=== PATIENT | female | born 1930 | race Caucasian/White ===

== ENCOUNTER → 2017-11-08 | Outpatient (CLI) | payer MEDICARE, BC ==
--- NOTE | 2017-11-08 09:19 | CT ---
EXAMINATION TYPE: CT abdomen pelvis wo con DATE OF EXAM: 11/08/2017 COMPARISON: 07/17/2016 HISTORY: Abdominal pain and constipation CT DLP: 229.80 mGycm Examination of the solid and hollow viscera is limited given the lack of contrast. FINDINGS: LUNG BASES: No evidence for nodule. No evidence for infiltrate. LIVER/GB: The gallbladder surgically absent. No space-occupying hepatic lesion. PANCREAS: No pancreatic mass identified. No inflammatory process seen. SPLEEN: No evidence for splenomegaly. No intrasplenic lesions seen. ADRENALS: No adrenal nodules identified. No evidence for thickening. KIDNEYS: No evidence for renal mass. No nephrolithiasis. No hydronephrosis. BOWEL: Moderate sized hiatal hernia with prominent intraluminal soft tissue. Consider direct visualiz ation to exclude underlying mass. Postsurgical change epicardium. Moderate to severe constipation thr oughout the colon. Postoperative changes rectosigmoid region. Small bowel is of normal caliber. No ev idence for free air or abscess. No evidence of bowel obstruction. No inflammatory process. Lymph nodes: No evidence for adenopathy greater than 1 cm. Abdominal aorta: Atheromatous changes seen. No evidence for aneurysm. Genital organs: Hysterectomy changes identified.. Other: Interval severe compression fracture of the L1 vertebral segment with minimal bony retropulsio n measuring 3 mm. Mild superior endplate compression fracture of L4 is unchanged. Superior endplate c ompression fracture of T11 is felt to be unchanged as well. Severe degenerative change. IMPRESSION: 1. HIATAL HERNIA WITH INCREASED SOFT TISSUE NOTED. CONSIDER DIRECT VISUALIZATION TO EXCLUDE MASS. 2. MODERATE TO SEVERE CONSTIPATION. 3. LUMBAR AND THORACIC COMPRESSION FRACTURES DISCUSSED ABOVE.
== END | disposition home or self-care (01) ==
LOC: RADCTMAIN 07:15
PROVIDERS: ATTEND Family Medicine
DX: K44.9 Diaphragmatic hernia without obstruction or gangrene (principal); K59.00 Constipation, unspecified
CPT/HCPCS: 74176

== ENCOUNTER → 2017-11-27 | Day surgery (SDC) | payer MEDICARE, BC ==
[2017-11-22 15:06] VITALS: BMI 23.8
[~2017-11-27] MED LIST: LACTATED RINGERS 1,000 ML IV ONE; LACTATED RINGERS 1,000 ML IV SCH; LIDOCAINE 1% 20 ML VIAL (10MG/ML) FOR IV START INTRADERMA PRN; PROPOFOL 10 MG/ML 20 ML VIAL IV ONE
[2017-11-27 10:06] VITALS: RESP 18; TEMP 98
--- NOTE | 2017-11-27 10:19 | P.GSHP ---
History of Present Illness H&P Date: 11/27/17 Chief Complaint: GI bleed This is an 86-year-old female who's had issues with rectal bleeding. Patient history of previous colon cancer. She presents today for upper and lower endoscopy for GI bleed. Past Medical History Past Medical History: Cancer, GERD/Reflux Additional Past Medical History / Comment(s): hx colon cancer 2005, had 6 months of chemo, recent blood in stool, states current hiatal hernia, states has had back pain since august, urinary incontinence History of Any Multi-Drug Resistant Organisms: None Reported Past Surgical History: Adenoidectomy, Appendectomy, Bowel Resection, Hysterectomy, Tonsillectomy Additional Past Surgical History / Comment(s): hiatal hernia repair, hang cataract sx Past Anesthesia/Blood Transfusion Reactions: No Reported Reaction Smoking Status: Never smoker - Past Family History Mother Family Medical History: No Reported History Medications and Allergies Home Medications Medication Instructions Recorded Confirmed Type Esomeprazole Magnesium [NexIUM] 40 mg PO DAILY PRN 03/15/16 11/22/17 History Acetaminophen Tab [Tylenol Tab] 325 mg PO Q6H PRN 11/22/17 11/22/17 History HYDROcodone/APAP 7.5-325MG [[place] 1 tab PO Q4H PRN 11/22/17 11/22/17 History 7.5-325] Oxybutynin Chloride [Ditropan] 5 mg PO DAILY PRN 11/22/17 11/22/17 History Allergies Allergy/AdvReac Type Severity Reaction Status Date / Time ibuprofen [From Motrin] Allergy Intermediate Swelling Verified 11/22/17 14:59 Surgical - Exam Vital Signs Temp Pulse Resp BP Pulse Ox 98.0 F 113 H 18 130/86 98 11/27/17 09:50 11/27/17 09:50 11/27/17 09:50 11/27/17 09:50 11/27/17 09:50 - General well developed, no distress - Eyes PERRL - ENT normal pinna - Neck no masses - Respiratory normal expansion - Cardiovascular Rhythm: regular - Abdomen Abdomen: soft, non tender, surgical scars (Low midline) Assessment and Plan Assessment: GI bleed. We'll perform upper and lower endoscopy.
--- NOTE | 2017-11-27 10:44 | P.OP ---
Date of Procedure: 11/27/17 Preoperative Diagnosis: Bleed Postoperative Diagnosis: Hiatal hernia Antral gastritis No evidence of colonic bleeding Mild external hemorrhoids Procedure(s) Performed: Colonoscopy Anesthesia: MAC Surgeon: Clinton Mitchell Pathology: other (Antrum, esophagus) Condition: stable Description of Procedure: The patient's placed on the endoscopy table in the lateral position. She received IV sedation. The gastroscope was placed oropharynx and passed in the esophagus and into the stomach. Scope was then placed through the pylorus. The first and second portion of the duodenum appeared normal. Scope was then brought back the antrum this. Mildly inflamed. A biopsies performed. The scope was unretroflexed and remainder of the stomach appeared normal. The GE junction was at 38 cm the distal esophagus appeared inflamed. There was a hiatal hernia seen. The proximal esophagus appeared normal. Scope was withdrawn for patient. Next digital rectal exam was performed which revealed a few external hemorrhoids. The flexible colonoscope was then placed patient anus and passed throughout the entire colon. The ileocecal valve was visualized. Cecum, ascending and transverse colon appeared normal. The descending colon was normal. The patient had a previous colorectal anastomosis this was visualized and appeared normal. There is known to any recurrent tumors. Scope summer back the rectum and this was normal. Scope then withdrawn from patient and some minimal internal and the external hemorrhoids were noted.
[2017-11-27 11:15] VITALS: BP 104/61; PULSE 77
== END ==
LOC: ORWHC2ENDO 09:34
PROVIDERS: ATTEND Surgery
DX: K29.50 Unspecified chronic gastritis without bleeding (principal); K20.0 Eosinophilic esophagitis; Z85.038 Personal history of other malignant neoplasm of large intestine; Z98.0 Intestinal bypass and anastomosis status; K21.0 Gastro-esophageal reflux disease with esophagitis; K44.9 Diaphragmatic hernia without obstruction or gangrene; K64.4 Residual hemorrhoidal skin tags; K64.8 Other hemorrhoids; Z88.6 Allergy status to analgesic agent
CPT/HCPCS: 88305; 45378; 43239; J2704

== ENCOUNTER → 2018-11-27 | Outpatient (CLI) | payer MEDICARE, BC ==
--- NOTE | 2018-11-27 10:22 | CT ---
EXAMINATION TYPE: CT chest wo con DATE OF EXAM: 11/27/2018 COMPARISON: 02/13/2012 HISTORY: Pain of thoracic spine CT DLP: 242 mGycm, Automated exposure control for dose reduction was used. CONTRAST: Performed injected with 0 mL of Isovue 300. TECHNIQUE: Axial images were obtained at 5 mm thick sections. Reconstructed images are reviewed on doctors hospital computer in the coronal plane. FINDINGS: Portion of the thyroid visualized is normal. No suspicious lung nodules or focal infiltrates are present. No enlarged mediastinal or hilar adenopathy is evident. Vascular calcifications within the aorta. T he ascending aorta diameter at the level of the main pulmonary artery is 3.4 cm. The main pulmonary artery diameter at the bifurcation is 1.9 cm. Mild coronary artery calcification is present. Limited CT sections are obtained through the upper abdomen. There is a small to moderate hiatal herni a present. Upper abdomen appears unremarkable. Osseous structures as visualized appear unremarkable. No discrete abnormality within the left posteri or ribs or within the scapula are evident. Note is made of a compression deformity within the lower thoracic spine this is an interval finding f rom 2011. This has some minimal posterior wall displacement without spinal canal stenosis. IMPRESSIONS: 1. Small to moderate size hiatal hernia. 2. No suspicious abnormality within the left ribs or scapula. 3. Interval compression deformity lower thoracic spine, likely the T11 level.
== END | disposition home or self-care (01) ==
LOC: RADCTMAIN 07:08
PROVIDERS: ATTEND Physical Medicine & Rehabilitation
DX: M43.8X4 Other specified deforming dorsopathies, thoracic region (principal); K44.9 Diaphragmatic hernia without obstruction or gangrene
CPT/HCPCS: 71250

== ENCOUNTER → 2018-12-06 | Outpatient (CLI) | payer MEDICARE, BC ==
[2018-12-06 11:12] LABS: Basophils # (A) 0.1 k/uL (0-0.2); Basophils % (A) 1 %; Eosinophils # (A) 0.2 k/uL (0-0.7); Eosinophils % (A) 4 %; HCT 37.8 % (34.0-46.0); HGB 12.1 gm/dL (11.4-16.0); Lymphocytes # (A) 1.3 k/uL (1.0-4.8); Lymphocytes % (A) 26 %; MCH 30.7 pg (25.0-35.0); MCV 96.2 fL (80.0-100.0); Mean Platelet Volume 5.8; Monocytes # (A) 0.3 k/uL (0-1.0); Monocytes % (A) 5 %; Neutrophils # (A) 3.1 k/uL (1.3-7.7); Neutrophils % (A) 61 %; Platelet Count 297 k/uL (150-450); RBC 3.93 m/uL (3.80-5.40); RDW 13.2 % (11.5-15.5)
[2018-12-06 12:31] LABS: Erythrocyte Sedimentation Rate 28 mm/hr (0-20)
== END | disposition home or self-care (01) ==
LOC: LABWHC1 10:06
PROVIDERS: ATTEND Physical Medicine & Rehabilitation
DX: M54.5 Low back pain (principal); E78.5 Hyperlipidemia, unspecified; M54.6 Pain in thoracic spine; M54.2 Cervicalgia; M25.512 Pain in left shoulder; Z85.820 Personal history of malignant melanoma of skin
CPT/HCPCS: 36415; 85025; 85652; 86140

== ENCOUNTER 2019-05-01 14:33 | Emergency (ER) | payer MEDICARE, BC ==
[2019-05-01] MEDS ORDERED: SODIUM CHLORIDE 0.9% 500 ML 500 ML IV STA (15:04)
--- NOTE | 2019-05-01 15:08 | ED ---
General Adult HPI - General Chief complaint: Shortness of Breath Stated complaint: SOB Time Seen by Provider: 05/01/19 14:40 Source: patient, RN notes reviewed Mode of arrival: wheelchair Limitations: no limitations - History of Present Illness Initial comments: This is an 88-year-old female with a past medical history significant for hiatal hernia. Patient states she takes no other medications. Patient states she was washing dishes and she became a little short of breath so she walked into the other room and laid down. Patient states she could not get over the shortness of breath so she came to the hospital. Patient states this started about an hour and a half prior to arrival. Patient denies any chest pain pressure or discomfort. Patient denies any recent fever though she does states she's been having a cough and some laryngitis. Patient states she's been appointment with ENT to check that out. Patient denies any recent fever chills. Patient states her shortness of breath has improved since she's been in the hospital. Patient denies any headache patient denies numbness weakness. Patient denies any abdominal pain patient denies nausea vomiting diarrhea. Patient denies any leg swelling or calf tenderness. - Related Data Home Medications Medication Instructions Recorded Confirmed Esomeprazole Magnesium [NexIUM] 40 mg PO DAILY PRN 03/15/16 05/01/19 Ascorbic Acid [Vitamin C] 500 mg PO DAILY 05/01/19 05/01/19 Cholecalciferol [Vitamin D3 (25 1,000 unit PO DAILY 05/01/19 05/01/19 Mcg = 1000 Iu)] Vitamin E 1,000 unit PO DAILY 05/01/19 05/01/19 Allergies Allergy/AdvReac Type Severity Reaction Status Date / Time No Known Allergies Allergy Verified 05/01/19 15:12 Review of Systems ROS Statement: Those systems with pertinent positive or pertinent negative responses have been documented in the HPI. ROS Other: All systems not noted in ROS Statement are negative. Past Medical History Past Medical History: Cancer, GERD/Reflux Additional Past Medical History / Comment(s): hx colon cancer 2005, had 6 months of chemo, recent blood in stool, states current hiatal hernia, states has had back pain since august, urinary incontinence History of Any Multi-Drug Resistant Organisms: None Reported Past Surgical History: Adenoidectomy, Appendectomy, Bowel Resection, Hysterectomy, Tonsillectomy Additional Past Surgical History / Comment(s): hiatal hernia repair, hang cataract sx Past Anesthesia/Blood Transfusion Reactions: No Reported Reaction Past Psychological History: No Psychological Hx Reported Smoking Status: Never smoker Past Alcohol Use History: None Reported Past Drug Use History: None Reported - Past Family History Mother Family Medical History: No Reported History General Exam - General Exam Comments Initial Comments: GENERAL: Patient is well-developed and well-nourished. Patient is nontoxic and well- hydrated and is in mild distress. ENT: Neck is soft and supple. No significant lymphadenopathy is noted. Oropharynx is clear. Moist mucous membranes. Neck has full range of motion without eliciting any pain. EYES: The sclera were anicteric and conjunctiva were pink and moist. Extraocular movements were intact and pupils were equal round and reactive to light. Eyelids were unremarkable. PULMONARY: Unlabored respirations. Good breath sounds bilaterally. No audible rales rhonchi or wheezing was noted. CARDIOVASCULAR: There is a regular rate and rhythm without any murmurs gallops or rubs. ABDOMEN: Soft and nontender with normal bowel sounds. No palpable organomegaly was noted. There is no palpable pulsatile mass. SKIN: Skin is clear with no lesions or rashes and otherwise unremarkable. NEUROLOGIC: Patient is alert and oriented x3. Cranial nerves II through XII are grossly intact. Motor and sensory are also intact. Normal speech, volume and content. Symmetrical smile. MUSCULOSKELETAL: Normal extremities with adequate strength and full range of motion. No lower extremity swelling or edema. No calf tenderness. LYMPHATICS: No significant lymphadenopathy is noted PSYCHIATRIC: Normal psychiatric evaluation. Limitations: no limitations Course Vital Signs 05/01/19 05/01/19 14:39 16:45 Temperature 97.9 F Pulse Rate 86 Respiratory 24 18 Rate Blood Pressure 153/89 O2 Sat by Pulse 100 Oximetry Medical Decision Making - Medical Decision Making EKG shows normal sinus rhythm at 77 bpm [place] interval is 140 QRS is 60 QT interval 380 QTC is 4:30. Patient's EKG shows no ST segment elevation or depression. New. Patient ambulated around the emergency department without any problems and she was back to her baseline. Patient denied any shortness of breath at this time. - Lab Data Result diagrams: 05/01/19 15:12 05/01/19 15:12 Lab Results 07/11/19 07/11/19 07/11/19 Range/Units 15:12 15:12 15:12 WBC 4.9 (3.8-10.6) k/uL RBC 3.66 L (3.80-5.40) m/uL Hgb 11.3 L (11.4-16.0) gm/dL Hct 35.3 (34.0-46.0) % MCV 96.4 (80.0-100.0) fL MCH 31.0 (25.0-35.0) pg MCHC 32.2 (31.0-37.0) g/dL RDW 13.6 (11.5-15.5) % Plt Count 263 (150-450) k/uL Neutrophils % 60 % Lymphocytes % 28 % Monocytes % 6 % Eosinophils % 1 % Basophils % 1 % Neutrophils # 2.9 (1.3-7.7) k/uL Lymphocytes # 1.4 (1.0-4.8) k/uL Monocytes # 0.3 (0-1.0) k/uL Eosinophils # 0.1 (0-0.7) k/uL Basophils # 0.0 (0-0.2) k/uL PT 9.6 (9.0-12.0) sec INR 0.9 (<1.2) APTT 22.5 (22.0-30.0) sec Sodium 141 (137-145) mmol/L Potassium 4.6 (3.5-5.1) mmol/L Chloride 105 (98-107) mmol/L Carbon Dioxide 27 (22-30) mmol/L Anion Gap 9 mmol/L BUN 17 (7-17) mg/dL Creatinine 0.69 (0.52-1.04) mg/dL Est GFR (CKD-EPI)AfAm >90 (>60 ml/min/1.73 sqM) Est GFR (CKD-EPI)NonAf 79 (>60 ml/min/1.73 sqM) Glucose 104 H (74-99) mg/dL Calcium 9.8 (8.4-10.2) mg/dL Magnesium 2.4 H (1.6-2.3) mg/dL Total Bilirubin 0.4 (0.2-1.3) mg/dL AST 28 (14-36) U/L ALT 17 (9-52) U/L Alkaline Phosphatase 73 (38-126) U/L Troponin I (0.000-0.034) ng/mL Total Protein 7.2 (6.3-8.2) g/dL Albumin 4.4 (3.5-5.0) g/dL Urine Color Urine Appearance (Clear) Urine pH (5.0-8.0) Ur Specific [place] (1.001-1.035) Urine Protein (Negative) Urine Glucose (UA) (Negative) Urine Ketones (Negative) Urine Blood (Negative) Urine Nitrite (Negative) Urine Bilirubin (Negative) Urine Urobilinogen (<2.0) mg/dL Ur Leukocyte Esterase (Negative) Urine RBC (0-5) /hpf Urine WBC (0-5) /hpf Ur Squamous Epith Cells (0-4) /hpf Urine Bacteria (None) /hpf Urine Mucus (None) /hpf 05/01/19 05/01/19 Range/Units 15:12 17:30 WBC (3.8-10.6) k/uL RBC (3.80-5.40) m/uL Hgb (11.4-16.0) gm/dL Hct (34.0-46.0) % MCV (80.0-100.0) fL MCH (25.0-35.0) pg MCHC (31.0-37.0) g/dL RDW (11.5-15.5) % Plt Count (150-450) k/uL Neutrophils % % Lymphocytes % % Monocytes % % Eosinophils % % Basophils % % Neutrophils # (1.3-7.7) k/uL Lymphocytes # (1.0-4.8) k/uL Monocytes # (0-1.0) k/uL Eosinophils # (0-0.7) k/uL Basophils # (0-0.2) k/uL PT (9.0-12.0) sec INR (<1.2) APTT (22.0-30.0) sec Sodium (137-145) mmol/L Potassium (3.5-5.1) mmol/L Chloride (98-107) mmol/L Carbon Dioxide (22-30) mmol/L Anion Gap mmol/L BUN (7-17) mg/dL Creatinine (0.52-1.04) mg/dL Est GFR (CKD-EPI)AfAm (>60 ml/min/1.73 sqM) Est GFR (CKD-EPI)NonAf (>60 ml/min/1.73 sqM) Glucose (74-99) mg/dL Calcium (8.4-10.2) mg/dL Magnesium (1.6-2.3) mg/dL Total Bilirubin (0.2-1.3) mg/dL AST (14-36) U/L ALT (9-52) U/L Alkaline Phosphatase (38-126) U/L Troponin I <0.012 (0.000-0.034) ng/mL Total Protein (6.3-8.2) g/dL Albumin (3.5-5.0) g/dL Urine Color Light Yellow Urine Appearance Clear (Clear) Urine pH 7.5 (5.0-8.0) Ur Specific [place] 1.007 (1.001-1.035) Urine Protein Negative (Negative) Urine Glucose (UA) Negative (Negative) Urine Ketones Negative (Negative) Urine Blood Negative (Negative) Urine Nitrite Negative (Negative) Urine Bilirubin Negative (Negative) Urine Urobilinogen <2.0 (<2.0) mg/dL Ur Leukocyte Esterase Moderate H (Negative) Urine RBC <1 (0-5) /hpf Urine WBC 6 H (0-5) /hpf Ur Squamous Epith Cells 2 (0-4) /hpf Urine Bacteria Rare H (None) /hpf Urine Mucus Rare H (None) /hpf Disposition Clinical Impression: Fatigue, Dyspnea Disposition: HOME SELF-CARE Condition: Good Instructions (If sedation given, give patient instructions): Dyspnea (ED) Is patient prescribed a controlled substance at d/c from ED?: No Referrals: Axel Brooks DO [Primary Care Provider] - 1-2 days Time of Disposition: 17:59
[2019-05-01 15:27] LABS: Basophils % (A) 1 %; Eosinophils # (A) 0.1 k/uL (0-0.7); Eosinophils % (A) 1 %; HCT 35.3 % (34.0-46.0); HGB 11.3 gm/dL (11.4-16.0); Lymphocytes # (A) 1.4 k/uL (1.0-4.8); Lymphocytes % (A) 28 %; MCHC 32.2 g/dL (31.0-37.0); MCV 96.4 fL (80.0-100.0); Mean Platelet Volume 6.6; Monocytes # (A) 0.3 k/uL (0-1.0); Monocytes % (A) 6 %; Neutrophils # (A) 2.9 k/uL (1.3-7.7); Neutrophils % (A) 60 %; Platelet Count 263 k/uL (150-450); RBC 3.66 m/uL (3.80-5.40); RDW 13.6 % (11.5-15.5); WBC 4.9 k/uL (3.8-10.6)
[2019-05-01 15:33] LABS: ALT 17 U/L (9-52); AST 28 U/L (14-36); African American GFR (CKD) >90 (>60 ml/min/1.73 sqM); Albumin 4.4 g/dL (3.5-5.0); Alkaline Phosphatase 73 U/L (38-126); Anion Gap 9 mmol/L; Blood Urea Nitrogen 17 mg/dL (7-17); Calcium 9.8 mg/dL (8.4-10.2); Carbon Dioxide 27 mmol/L (22-30); Chloride 105 mmol/L (98-107); Glucose 104 mg/dL (74-99); Magnesium 2.4 mg/dL (1.6-2.3); Potassium 4.6 mmol/L (3.5-5.1); Sodium 141 mmol/L (137-145); Total Bilirubin 0.4 mg/dL (0.2-1.3); Total Protein 7.2 g/dL (6.3-8.2)
[2019-05-01 15:50] LABS: INR 0.9 (<1.2); Partial Thromboplastin Time 22.5 sec (22.0-30.0); Prothrombin Time 9.6 sec (9.0-12.0)
--- NOTE | 2019-05-01 15:58 | XR ---
EXAMINATION TYPE: XR chest 2V DATE OF EXAM: 05/01/2019 COMPARISON: 08/22/2017 HISTORY: Worsening shortness of breath TECHNIQUE: Frontal and lateral views of the chest are obtained. FINDINGS: Pulmonary hyperinflation and biapical lucency relates underlying COPD. There is also loretta ening the diaphragms on the lateral view and increased anterior posterior dimension the chest also co mpatible with COPD. There is exaggerated thoracic kyphosis and diffuse osseous demineralization. Mode rate hiatal hernia is present. Cardiomediastinal silhouette appears similar to the prior with tortuos ity of the ascending and descending thoracic aorta. No new focal consolidation, pleural effusion or p neumothorax. Slight eventration of the left hemidiaphragm versus diaphragmatic herniation. IMPRESSION: 1. No acute cardiopulmonary process. 2. 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 3. Extensive COPD. 4. Moderate hiatal hernia.
[2019-05-01 16:47] VITALS: RESP 18
[2019-05-01 17:41] LABS: Appearance,Urine Clear (Clear); Bacteria,Urine Rare /hpf; Bilirubin,Urine Negative (Negative); Blood,Urine Negative (Negative); Color,Urine Light Yellow; Glucose,Urine (UA) Negative (Negative); Ketones,Urine Negative (Negative); Leukocyte Esterase,Urine Moderate (Negative); Mucus,Urine Rare /hpf; Nitrite,Urine Negative (Negative); PH, Urine 7.5 (5.0-8.0); Protein,Urine Negative (Negative); RBC,Urine <1 /hpf (0-5); Specific Gravity,Urine 1.007 (1.001-1.035); Squamous Epithelial Cell,Urine 2 /hpf (0-4); Urobilinogen,Urine <2.0 mg/dL (<2.0)
[2019-05-01 18:23] VITALS: BP 145/89; PULSE 70; TEMP 98
== END 2019-05-01 18:20 | disposition home or self-care (01) ==
LOC: EC 14:33
DX: R06.00 Dyspnea, unspecified (principal); R53.83 Other fatigue; R05 Cough; Z85.038 Personal history of other malignant neoplasm of large intestine; Z92.21 Personal history of antineoplastic chemotherapy
CPT/HCPCS: 36415; 71046; 80053; 81001; 83735; 84484; 85025; 85610; 85730; 87040; 93005; 96360; 99285

== ENCOUNTER 2019-05-03 14:01 | Observation (INO) | payer MEDICARE, BC ==
[2019-05-03] MEDS ORDERED: SODIUM CHLORIDE 0.9% 1,000 ML IV STA (14:26)
[2019-05-03] MEDS ORDERED: IPRATROPIUM-ALBUTEROL 3 ML NEB INHALATION STA ×2 (14:26→16:03)
--- NOTE | 2019-05-03 14:30 | ED ---
SOB HPI - General Chief Complaint: Shortness of Breath Stated Complaint: CAROLYN Time Seen by Provider: 05/03/19 14:20 Source: patient, family, RN notes reviewed, old records reviewed Mode of arrival: wheelchair Limitations: no limitations - History of Present Illness Initial Comments: This is a 88-year-old female who presents with complaints of shortness of breath. She states she was short of breath and feeling shaky today she could not get her breath and minute which she did. She denies any chest pain or tightness. She does states she was here 2 days ago with some similar symptoms and feels very similar to what she did 2 days ago. No cough no fevers chills nausea vomiting sweats phlegm production no peripheral edema. She does states she was told by her doctor that she does have COPD she does not use any type of inhaler or medication for this. MD Complaint: shortness of breath - Related Data Home Medications Medication Instructions Recorded Confirmed Esomeprazole Magnesium [NexIUM] 40 mg PO DAILY PRN 03/15/16 05/03/19 Ascorbic Acid [Vitamin C] 500 mg PO DAILY 05/01/19 05/03/19 Cholecalciferol [Vitamin D3 (25 1,000 unit PO DAILY 05/01/19 05/03/19 Mcg = 1000 Iu)] Vitamin E 1,000 unit PO DAILY 05/01/19 05/03/19 Allergies Allergy/AdvReac Type Severity Reaction Status Date / Time No Known Allergies Allergy Verified 05/03/19 14:21 Review of Systems ROS Statement: Those systems with pertinent positive or pertinent negative responses have been documented in the HPI. ROS Other: All systems not noted in ROS Statement are negative. Past Medical History Past Medical History: Cancer, GERD/Reflux Additional Past Medical History / Comment(s): hx colon cancer 2005, had 6 months of chemo, recent blood in stool, states current hiatal hernia, states has had back pain since august, urinary incontinence History of Any Multi-Drug Resistant Organisms: None Reported Past Surgical History: Adenoidectomy, Appendectomy, Bowel Resection, Hysterectomy, Tonsillectomy Additional Past Surgical History / Comment(s): hiatal hernia repair, hang cataract sx Past Anesthesia/Blood Transfusion Reactions: No Reported Reaction Past Psychological History: No Psychological Hx Reported Smoking Status: Never smoker Past Alcohol Use History: None Reported Past Drug Use History: None Reported - Past Family History Mother Family Medical History: No Reported History General Exam - General Exam Comments Initial Comments: This is a well-developed asthenic appearing female who is awake alert oriented 3 she does demonstrate some tremors and is very anxious Limitations: no limitations General appearance: alert, in no apparent distress Head exam: Present: atraumatic, normocephalic, normal inspection Eye exam: Present: normal appearance, PERRL, EOMI. Absent: scleral icterus, conjunctival injection, periorbital swelling ENT exam: Present: mucous membranes dry Neck exam: Present: normal inspection, full ROM, other (No stridor JVD or bruit s). Absent: tenderness, meningismus, lymphadenopathy Respiratory exam: Present: decreased breath sounds, other (Diminished breath sounds bilaterally with kyphosis demonstrated no overt consolidations.). Absent: respiratory distress, wheezes, rales, rhonchi, stridor Cardiovascular Exam: Present: regular rate, normal rhythm, normal heart sounds. Absent: systolic murmur, diastolic murmur, rubs, gallop, clicks GI/Abdominal exam: Present: soft, normal bowel sounds. Absent: distended, tenderness, guarding, rebound, rigid Extremities exam: Present: normal inspection, full ROM, normal capillary refill. Absent: tenderness, pedal edema, joint swelling, calf tenderness Back exam: Present: normal inspection Neurological exam: Present: alert, oriented X3, CN II-XII intact Psychiatric exam: Present: normal affect, anxious Skin exam: Present: warm, dry, intact, normal color. Absent: rash Course Vital Signs 05/03/19 05/03/19 05/03/19 14:15 14:17 14:51 Temperature 98.4 F Pulse Rate 86 71 Respiratory 18 20 Rate Blood Pressure 151/88 O2 Sat by Pulse 97 Oximetry 05/03/19 15:01 Temperature Pulse Rate 80 Respiratory Rate Blood Pressure O2 Sat by Pulse Oximetry Medical Decision Making - Medical Decision Making I did reevaluate patient several occasions she still complains of shortness of breath he does have some midepigastric discomfort she feels may be secondary to her hiatal hernia. He still demonstrate diminished breath sounds. Her pulse ox is somewhat variable. Patient will be admitted with pulmonary evaluation. I did discuss case with Dr. Johnson who did come the emergency department to see the patient. - Lab Data Result diagrams: 05/03/19 14:42 05/03/19 14:42 Lab Results 05/03/19 05/03/19 05/03/19 Range/Units 14:42 14:42 14:42 WBC 5.6 (3.8-10.6) k/uL RBC 3.56 L (3.80-5.40) m/uL Hgb 11.0 L (11.4-16.0) gm/dL Hct 34.2 (34.0-46.0) % MCV 96.1 (80.0-100.0) fL MCH 30.8 (25.0-35.0) pg MCHC 32.0 (31.0-37.0) g/dL RDW 13.5 (11.5-15.5) % Plt Count 243 (150-450) k/uL Neutrophils % 62 % Lymphocytes % 27 % Monocytes % 5 % Eosinophils % 2 % Basophils % 1 % Neutrophils # 3.5 (1.3-7.7) k/uL Lymphocytes # 1.5 (1.0-4.8) k/uL Monocytes # 0.3 (0-1.0) k/uL Eosinophils # 0.1 (0-0.7) k/uL Basophils # 0.0 (0-0.2) k/uL PT 9.7 (9.0-12.0) sec INR 0.9 (<1.2) APTT 22.3 (22.0-30.0) sec D-Dimer 0.55 (<0.60) mg/L FEU Sodium 138 (137-145) mmol/L Potassium 4.7 (3.5-5.1) mmol/L Chloride 103 (98-107) mmol/L Carbon Dioxide 25 (22-30) mmol/L Anion Gap 10 mmol/L BUN 19 H (7-17) mg/dL Creatinine 0.72 (0.52-1.04) mg/dL Est GFR (CKD-EPI)AfAm 88 (>60 ml/min/1.73 sqM) Est GFR (CKD-EPI)NonAf 76 (>60 ml/min/1.73 sqM) Glucose 95 (74-99) mg/dL Calcium 9.6 (8.4-10.2) mg/dL Magnesium 2.1 (1.6-2.3) mg/dL Total Bilirubin 0.4 (0.2-1.3) mg/dL AST 26 (14-36) U/L ALT 14 (9-52) U/L Alkaline Phosphatase 72 (38-126) U/L Troponin I (0.000-0.034) ng/mL NT-Pro-B Natriuret Pep pg/mL Total Protein 7.0 (6.3-8.2) g/dL Albumin 4.2 (3.5-5.0) g/dL 05/03/19 05/03/19 Range/Units 14:42 14:42 WBC (3.8-10.6) k/uL RBC (3.80-5.40) m/uL Hgb (11.4-16.0) gm/dL Hct (34.0-46.0) % MCV (80.0-100.0) fL MCH (25.0-35.0) pg MCHC (31.0-37.0) g/dL RDW (11.5-15.5) % Plt Count (150-450) k/uL Neutrophils % % Lymphocytes % % Monocytes % % Eosinophils % % Basophils % % Neutrophils # (1.3-7.7) k/uL Lymphocytes # (1.0-4.8) k/uL Monocytes # (0-1.0) k/uL Eosinophils # (0-0.7) k/uL Basophils # (0-0.2) k/uL PT (9.0-12.0) sec INR (<1.2) APTT (22.0-30.0) sec D-Dimer (<0.60) mg/L FEU Sodium (137-145) mmol/L Potassium (3.5-5.1) mmol/L Chloride (98-107) mmol/L Carbon Dioxide (22-30) mmol/L Anion Gap mmol/L BUN (7-17) mg/dL Creatinine (0.52-1.04) mg/dL Est GFR (CKD-EPI)AfAm (>60 ml/min/1.73 sqM) Est GFR (CKD-EPI)NonAf (>60 ml/min/1.73 sqM) Glucose (74-99) mg/dL Calcium (8.4-10.2) mg/dL Magnesium (1.6-2.3) mg/dL Total Bilirubin (0.2-1.3) mg/dL AST (14-36) U/L ALT (9-52) U/L Alkaline Phosphatase (38-126) U/L Troponin I <0.012 (0.000-0.034) ng/mL NT-Pro-B Natriuret Pep 241 pg/mL Total Protein (6.3-8.2) g/dL Albumin (3.5-5.0) g/dL - EKG Data -: EKG Interpreted by Me EKG shows normal: sinus rhythm (Normal sinus rhythm at 70. Interval 140 QRS duration 70 QT since QTC 394/425 to QA changes) - Radiology Data Radiology results: report reviewed (I did review the imaging and report or is evidence of COPD no definite infiltrates), image reviewed Disposition Clinical Impression: Acute exacerbation of chronic obstructive airways disease, Hiatal hernia Disposition: ADMITTED IP TO THIS [facility] Condition: Fair Referrals: Axel Brooks DO [Primary Care Provider] - 1-2 days
--- NOTE | 2019-05-03 15:19 | XR ---
EXAMINATION TYPE: XR chest 2V DATE OF EXAM: 05/03/2019 COMPARISON: 05/01/2019 INDICATION: Difficulty breathing TECHNIQUE: Frontal and lateral views of the chest are obtained. FINDINGS: The heart size is normal. The pulmonary vasculature is normal. The lungs are clear. There is a focal eventration of the posterior diaphragm on the left. Hyperinfla tion flattening the diaphragms is present compatible COPD IMPRESSION: 1. No acute pulmonary process. 2. COPD
[2019-05-03 15:32] LABS: Basophils % (A) 1 %; Eosinophils # (A) 0.1 k/uL (0-0.7); Eosinophils % (A) 2 %; HCT 34.2 % (34.0-46.0); Lymphocytes # (A) 1.5 k/uL (1.0-4.8); Lymphocytes % (A) 27 %; MCH 30.8 pg (25.0-35.0); MCV 96.1 fL (80.0-100.0); Mean Platelet Volume 6.2; Monocytes # (A) 0.3 k/uL (0-1.0); Monocytes % (A) 5 %; Neutrophils # (A) 3.5 k/uL (1.3-7.7); Neutrophils % (A) 62 %; Platelet Count 243 k/uL (150-450); RBC 3.56 m/uL (3.80-5.40); RDW 13.5 % (11.5-15.5); WBC 5.6 k/uL (3.8-10.6)
[2019-05-03 15:40] LABS: Albumin 4.2 g/dL (3.5-5.0); Calcium 9.6 mg/dL (8.4-10.2); Magnesium 2.1 mg/dL (1.6-2.3); Potassium 4.7 mmol/L (3.5-5.1); Total Bilirubin 0.4 mg/dL (0.2-1.3)
[2019-05-03 15:47] LABS: D-Dimer 0.55 mg/L FEU (<0.60); INR 0.9 (<1.2); Partial Thromboplastin Time 22.3 sec (22.0-30.0); Prothrombin Time 9.7 sec (9.0-12.0)
[2019-05-03] MEDS ORDERED: MAG HYDROX/AL HYDROX/SIMETH 30 ML, HYOSCYAMINE ELIXIR 10 ML, CIMETIDINE HCL 300 MG PO STA ×3 (16:03)
[2019-05-03] MEDS ORDERED: PANTOPRAZOLE 40 MG TABLET PO PRN (16:43)
[2019-05-03] MEDS ORDERED: SODIUM CHLORIDE 0.9% 1,000 ML IV SCH (16:45)
--- NOTE | 2019-05-03 17:31 | P.HPIM ---
History of Present Illness 88-year-old pleasant female came in with compensative from an of shortness of breath patient MDR couple times recently because of which the ER physician is concerned in the wanted to monitor her overnight here. Patient doesn't have any wheezing and she was believed to have COPD was given steroids in ER. Patient denied any smoking history in the past patient was complaining of some chest tightness and hiatal hernia-like symptoms patient does have history of patent hernia in the past though there is no intrathoracic stomach that is evident on the x-ray patient does have symptoms of hiatal hernia patient had Kulwant fundoplication in the past and was told she has a hiatal hernia again in a different location. Patient is on Nexium patient does have complaints of acid reflux with the pharyngitis and laryngitis and speech abnormality and patient has an appointment with ENT. Patient denied any sputum production chest x-ray did not show pneumonia patient had any fever. Chest x-ray did show hyperinflated lungs. Patient's symptoms of epigastric pain and retrosternal pain is noncardiac but will obtain 2 more troponin sets of troponins EKG showed sinus rhythm without any acute ST-T wave changes Review of Systems REVIEW OF SYSTEMS: CONSTITUTIONAL: No fever, no malaise, no fatigue. HEENT: No recent visual problems or hearing problems. Denied any sore throat. CARDIOVASCULAR: No orthopnea, PND, no palpitations, no syncope. PULMONARY: No shortness of breath, no cough, no hemoptysis. GASTROINTESTINAL: No diarrhea, NEUROLOGICAL: No headaches, no weakness, no numbness. HEMATOLOGICAL: Denies any bleeding or petechiae. GENITOURINARY: Denies any burning micturition, frequency, or urgency. MUSCULOSKELETAL/RHEUMATOLOGICAL: Denies any joint pain, swelling, or any muscle pain. ENDOCRINE: Denies any polyuria or polydipsia. The rest of the 14-point review of systems is negative. Past Medical History Past Medical History: Cancer, GERD/Reflux Additional Past Medical History / Comment(s): hx colon cancer 2005, had 6 months of chemo, recent blood in stool, states current hiatal hernia, states has had back pain since august, urinary incontinence History of Any Multi-Drug Resistant Organisms: None Reported Past Surgical History: Adenoidectomy, Appendectomy, Bowel Resection, Hysterectomy, Tonsillectomy Additional Past Surgical History / Comment(s): hiatal hernia repair, hang cataract sx Past Anesthesia/Blood Transfusion Reactions: No Reported Reaction Past Psychological History: No Psychological Hx Reported Smoking Status: Never smoker Past Alcohol Use History: None Reported Past Drug Use History: None Reported - Past Family History Mother Family Medical History: No Reported History Medications and Allergies Home Medications Medication Instructions Recorded Confirmed Type Esomeprazole Magnesium [NexIUM] 40 mg PO DAILY PRN 03/15/16 05/03/19 History Ascorbic Acid [Vitamin C] 500 mg PO DAILY 05/01/19 05/03/19 History Cholecalciferol [Vitamin D3 (25 1,000 unit PO DAILY 05/01/19 05/03/19 History Mcg = 1000 Iu)] Vitamin E 1,000 unit PO DAILY 05/01/19 05/03/19 History Allergies Allergy/AdvReac Type Severity Reaction Status Date / Time No Known Allergies Allergy Verified 05/03/19 14:21 Physical Exam Vitals: Vital Signs Temp Pulse Resp BP Pulse Ox 05/03/19 15:01 80 05/03/19 14:51 71 05/03/19 14:17 20 05/03/19 14:15 98.4 F 86 18 151/88 97 Intake and Output 05/03/19 05/03/19 05/03/19 06:59 14:59 22:59 Other: Weight 49.442 kg PHYSICAL EXAMINATION: GENERAL: The patient is alert and oriented x3, not in any acute distress. Thin built female HEENT: Pupils are round and equally reacting to light. EOMI. No scleral icterus. No conjunctival pallor. Normocephalic, atraumatic. No pharyngeal erythema. No thyromegaly. CARDIOVASCULAR: S1 and S2 present. No murmurs, rubs, or gallops. PULMONARY: Chest is clear to auscultation, no wheezing or crackles. ABDOMEN: Soft, nontender, nondistended, normoactive bowel sounds. No palpable organomegaly. MUSCULOSKELETAL: No joint swelling or deformity. EXTREMITIES: No cyanosis, clubbing, or pedal edema. NEUROLOGICAL: Gross neurological examination did not reveal any focal deficits. SKIN: No rashes. Results CBC & Chem 7: 05/03/19 14:42 05/03/19 14:42 Labs: Abnormal Lab Results - Last 24 Hours (Table) 05/03/19 05/03/19 Range/Units 14:42 14:42 RBC 3.56 L (3.80-5.40) m/uL Hgb 11.0 L (11.4-16.0) gm/dL BUN 19 H (7-17) mg/dL Assessment and Plan Plan: -Shortness of breath: Patient does not have any evidence of COPD exacerbation patient is not wheezing at this time. Patient may have had transient wheezing which can be from acid reflux patient does have laryngitis and hoarseness of voice probably from acid reflux. Patient does have had a hernia and significant acid reflux symptoms. Systemic steroids or harmful in this scenario because of his chest system steroids will be discontinued patient is saturating well on 2 L patient may not require any oxygen at all. We'll monitor her overnight and not twice a day of Protonix and Maalox and possibility of discharge tomorrow -Hiatal hernia -The gastric abdominal pain we will rule out acute medicine syndromes my suspicion is extremely low that patient has a acute coronary event. We'll repeat 2 more sets of troponins. Patient the will see general surgeon upon discharge for hiatal hernia although will not be a candidate for repeat procedure at this time. History of colon cancer in remission DVT prophylaxis early ambulation
[2019-05-03] MEDS ORDERED: methylPREDNISolone SOD SUCCI 125 MG/2 ML VIAL IV SCH (18:00)
[2019-05-03] MEDS: IPRATROPIUM-ALBUTEROL 3 ML NEB INHALATION SCH ×2 (19:32→23:52)
[2019-05-03] MEDS: SIMETHICONE 80 MG CHEWABLE PO SCH ×2 (21:31→21:33)
[2019-05-03] MEDS: PANTOPRAZOLE 40 MG TABLET PO SCH (21:32)
[2019-05-04] MEDS: IPRATROPIUM-ALBUTEROL 3 ML NEB INHALATION SCH ×3 (03:28→11:39)
[2019-05-04] MEDS: SIMETHICONE 80 MG CHEWABLE PO SCH ×2 (08:20→13:18)
[2019-05-04] MEDS: PANTOPRAZOLE 40 MG TABLET PO SCH (08:20)
[2019-05-04] MEDS ORDERED: CHOLECALCIFEROL 1,000 UNIT TAB PO SCH (09:00)
[2019-05-04] MEDS ORDERED: ASCORBIC ACID 500 MG TAB PO SCH (09:00)
[2019-05-04] MEDS ORDERED: VITAMIN E (DL,TOCOPHERYL ACET) 400 UNIT CAP PO SCH (09:00)
--- NOTE | 2019-05-04 11:58 | P.CNPUL ---
History of Present Illness Consult date: 05/04/19 Requesting physician: Sidra Johnson Reason for consult: dyspnea Chief complaint: Shortness of breath, recurrent, History of present illness: This is an 88-year-old female with no previous documented history of COPD, never smoked, patient has been evaluated in the ER for recurrent episodes of shortness of breath. Workup in the ER included a chest x-ray which was basically unremarkable, d-dimer which was normal, and normal CBC, normal complete metabolic profile. Patient has chronic history of GERD, she has hiatal hernia, the was already addressed and felt that the patient was not a good surgical candidate. At any rate considering her shortness of breath, patient was admitted and this consult was initiated. Patient denies any documented cardiac history, denies any history of deep vein thrombosis, denies any history of pulmonary embolism or hypercoagulable state, and again her d-dimer on admission was normal. Patient denies any wheezing, no fever, no chills, no hemoptysis. A s a matter of fact that during my evaluation, patient had no complaints whatsoever, believe that she may have episodes of anxiety. At any rate physical examination was also unremarkable, and I felt that the patient could be considered for discharge home, and should have outpatient follow-up with possible PFT on outpatient basis, and should have reevaluation by cardiology. At this point the patient is asymptomatic, and her shortness of breath which is chronic and recurrent could be evaluated outpatient basis. Review of Systems CONSTITUTIONAL: Denies any weight loss, no fever, no chills. HEENT: Denies any sore throat, no earache, no syncope, no dizziness. No vertigo.. CARDIOVASCULAR: Denies any chest pain, orthopnea, PND, palpitation, PULMONARY: As noted in HPI, presently asymptomatic.. GASTROINTESTINAL: History of chronic GERD, evaluated by general surgery in the past, and felt not a good candidate for surgery., NEUROLOGICAL: No headaches no blurred vision no dizziness. HEMATOLOGICAL: Denies any history of clotting bleeding or bruising GENITOURINARY: Denies any dysuria frequency urgency or hematuria. MUSCULOSKELETAL/RHEUMATOLOGICAL: Denies any joint pain, swelling, or any muscle pain. ENDOCRINE: Denies any heat or cold intolerance. Denies any polyuria polydipsia or polyphagia. 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 Past Anesthesia/Blood Transfusion Reactions: No Reported Reaction Past Psychological History: No Psychological Hx Reported Smoking Status: Never smoker Past Alcohol Use History: None Reported Past Drug Use History: None Reported - Past Family History Mother Family Medical History: No Reported History Medications and Allergies Home Medications Medication Instructions Recorded Confirmed Type Esomeprazole Magnesium [NexIUM] 40 mg PO DAILY PRN 03/15/16 05/03/19 History Ascorbic Acid [Vitamin C] 500 mg PO DAILY 05/01/19 05/03/19 History Cholecalciferol [Vitamin D3 (25 1,000 unit PO DAILY 05/01/19 05/03/19 History Mcg = 1000 Iu)] Vitamin E 1,000 unit PO DAILY 05/01/19 05/03/19 History Allergies Allergy/AdvReac Type Severity Reaction Status Date / Time No Known Allergies Allergy Verified 05/03/19 14:21 Physical Exam Vitals: Vital Signs Temp Pulse Pulse Resp BP BP Pulse Ox 05/04/19 11:39 84 05/04/19 05:00 98.1 F 78 18 126/77 96 05/04/19 00:08 75 05/03/19 23:57 74 05/03/19 21:00 97.4 F L 86 18 120/74 97 05/03/19 19:26 98.3 F 98 14 152/89 95 05/03/19 15:01 80 05/03/19 14:51 71 05/03/19 14:17 20 05/03/19 14:15 98.4 F 86 18 151/88 97 Intake and Output 05/03/19 05/04/19 05/04/19 22:59 06:59 14:59 Intake Total 0 300 320 Balance 0 300 320 Intake: Oral 0 300 320 Other: # Voids 0 2 Physical Exam: Revealed a 88-year-old white female in no form of any distress. On room air. Head: Atraumatic, normocephalic. HEENT:[Neck is supple.] [No neck masses.] [No thyromegaly.] [No JVD.] PERRLA, EOMI, no icterus, moist mucous membranes. Chest: [Clear throughout, no crackles, no rhonchi, no wheezes.] Cardiac Exam: [Normal S1 and S2, no S3 gallop, no murmur.] Abdomen: [Soft, nontender, no megaly, no rebound, no guarding, normal bowel sounds.] Extremities: [No clubbing, no edema, no cyanosis.] Neurological Exam: [No focal neurologic deficit.] Psychiatric: Normal mood affect and normal mental status examination. Skin: No rashes. Lymphatics: No lymphadenopathy. Results - Laboratory Findings CBC and BMP: 05/03/19 14:42 05/03/19 14:42 PT/INR, D-dimer PT 9.7 sec (9.0-12.0) 05/03/19 14:42 INR 0.9 (<1.2) 05/03/19 14:42 D-Dimer 0.55 mg/L FEU (<0.60) 05/03/19 14:42 Abnormal lab findings: Abnormal Labs 05/03/19 05/03/19 14:42 14:42 RBC 3.56 L Hgb 11.0 L BUN 19 H - Diagnostic Findings Chest x-ray: image reviewed (As noted in HPI.) Assessment and Plan Assessment: Impression: 1 recurrent episodes of dyspnea, exact etiology is not clear, patient never smoked, no previous history of documented asthma, she does have history of GERD which is clearly documented, and history of hiatal hernia, may or may not be a contributing factor to her shortness of breath. Recommendation: Suggest discharging the patient home, follow up on outpatient basis, patient will definitely need a full PFT, 6 minute walk, cardiac ev aluation and reevaluation with repeat echocardiogram, and possibly cardiac catheterization. This will all depend on the pulmonary findings and whether these findings could explain her dyspnea. Clinically today and based on my physical examination and history, patient could be discharged home and follow up on outpatient basis. And should have follow-up with her defense travel administrator/Dr. Lazaro. Time with Patient: Greater than 30
[2019-05-04 14:41] VITALS: BP 111/66; PULSE 83; RESP 16; TEMP 98.2
--- NOTE | 2019-05-04 14:59 | P.DS ---
Providers Date of admission: 05/03/19 16:41 Attending physician: Axel Brooks Consults: 05/03/19 16:41 Consult Physician Routine Consulting Provider: Florecita Crain Consult Reason/Comments: COPD exacerbation Do you want consulting provider notified?: Yes Primary care physician: Axel Brooks Hospital Course: Patient is admitted for the shortness of breath although doesn't have any COPD or CHF patient appears to have gastroesophageal reflux disease resulting in pharyngitis maybe bronchospasm, patient is feeling better today and no shortness of breath was evaluated by pulmonary and will see her as an outpatient no evidence of COPD exacerbation at this time patient has hiatal hernia patient will be started on Protonix twice a day and Maalox. Patient will follow with general surgery because for her hiatal hernia and pulmonary as an outpatient. PHYSICAL EXAMINATION: GENERAL: The patient is alert and oriented x3, not in any acute distress. Thin built female HEENT: Pupils are round and equally reacting to light. EOMI. No scleral icterus. No conjunctival pallor. Normocephalic, atraumatic. No pharyngeal erythema. No thyromegaly. CARDIOVASCULAR: S1 and S2 present. No murmurs, rubs, or gallops. PULMONARY: Chest is clear to auscultation, no wheezing or crackles. ABDOMEN: Soft, nontender, nondistended, normoactive bowel sounds. No palpable organomegaly. MUSCULOSKELETAL: No joint swelling or deformity. EXTREMITIES: No cyanosis, clubbing, or pedal edema. NEUROLOGICAL: Gross neurological examination did not reveal any focal deficits. SKIN: No rashes. Please review my dictation of which be from yesterday for the further details of hospitalization course and medical problems that were addressed. Patient Condition at Discharge: Fair Plan - Discharge Summary Discharge Rx Participant: No New Discharge Prescriptions: New Pantoprazole Sodium [Protonix] 20 mg PO AC-BID #60 tablet.dr Earlethiconadelaide Chew [Mylicon Chew] 40 mg PO QID #60 chew Continue Cholecalciferol [Vitamin D3 (25 Mcg = 1000 Iu)] 1,000 unit PO DAILY Vitamin E 1,000 unit PO DAILY Discontinued Esomeprazole Magnesium [NexIUM] 40 mg PO DAILY PRN PRN Reason: Dyspepsia Ascorbic Acid [Vitamin C] 500 mg PO DAILY Discharge Medication List Cholecalciferol [Vitamin D3 (25 Mcg = 1000 Iu)] 1,000 unit PO DAILY 05/01/19 [History] Vitamin E 1,000 unit PO DAILY 05/01/19 [History] Pantoprazole Sodium [Protonix] 20 mg PO AC-BID #60 tablet. 05/04/19 [Rx] Simethicone Chew [Mylicon Chew] 40 mg PO QID #60 chew 05/04/19 [Rx] Follow up Appointment(s)/Referral(s): Axel Brooks DO [Primary Care Provider] - 3 Days Patient Instructions/Handouts: COPD (Chronic Obstructive Pulmonary Disease) (DC) Discharge Disposition: HOME SELF-CARE
== END 2019-05-04 15:12 | disposition home or self-care (01) ==
LOC: EC 14:01 → 3NMEDONC 16:41 → 4MS4W 17:39
PROVIDERS: ADMIT Family Medicine; ATTEND Family Medicine
DX: R06.02 Shortness of breath (principal); R06.00 Dyspnea, unspecified; K44.9 Diaphragmatic hernia without obstruction or gangrene; J02.9 Acute pharyngitis, unspecified; J04.0 Acute laryngitis; R49.0 Dysphonia; M54.9 Dorsalgia, unspecified; R32 Unspecified urinary incontinence; Z79.899 Other long term (current) drug therapy; Z87.19 Personal history of other diseases of the digestive system; Z85.038 Personal history of other malignant neoplasm of large intestine; Z92.21 Personal history of antineoplastic chemotherapy; Z90.49 Acquired absence of other specified parts of digestive tract
CPT/HCPCS: 96360; 96361 ×2; 99285; 36415; 94640 ×2; 85379; 83880; 80053; 83735; 84484 ×2; 85025; 85610; 85730; 71046; G0378 ×3

== ENCOUNTER → 2019-07-16 | Outpatient (CLI) | payer MEDICARE, BC | END | disposition home or self-care (01) | LOC: CPPFTMAIN 11:22 | PROVIDERS: ATTEND Internal Medicine | DX: R06.02 Shortness of breath (principal) | CPT/HCPCS: 94060; 94726; 94729 ==

== ENCOUNTER → 2019-08-06 | Outpatient (CLI) | payer MEDICARE, BC | END | disposition home or self-care (01) | LOC: LABWHC1 07:54 | PROVIDERS: ATTEND Otolaryngology | DX: E04.1 Nontoxic single thyroid nodule (principal); R53.83 Other fatigue | CPT/HCPCS: 36415; 84439; 84443 ==

== ENCOUNTER → 2019-09-09 | Outpatient (CLI) | payer MEDICARE, BC ==
--- NOTE | 2019-09-09 14:25 | US ---
EXAMINATION TYPE: US thyroid st tissue head/neck DATE OF EXAM: 09/09/2019 COMPARISON: CT CLINICAL HISTORY: E04.1 Thyroid Nodule. Pt states hoarseness, otherwise no other complaints at this t desiree GLAND SIZE: Right Lobe: 4.8 x 1.8 x 1.8 cm Overall Parenchyma: homogenous Left Lobe: 4.7 x 1.7 x 2.0 cm Overall Parenchyma: homogeneous Isthmus Thickness: 0.3 cm Bilateral neck scanned, no evidence of lymphadenopathy. Thyroid appeared wnl. IMPRESSION: Upper limits of normal size of the thyroid gland. Homogeneous echotexture with no focal n odule.
== END | disposition home or self-care (01) ==
LOC: RADUSWWP 13:18
PROVIDERS: ATTEND Otolaryngology
DX: E04.1 Nontoxic single thyroid nodule (principal)
CPT/HCPCS: 76536

== ENCOUNTER 2020-08-10 08:07 | Emergency (ER) | payer MEDICARE, BC ==
[2020-08-10] MEDS ORDERED: SODIUM CHLORIDE 0.9% 500 ML 500 ML IV STA (08:13)
[2020-08-10] MEDS ORDERED: METOCLOPRAMIDE 5 MG/ML 2 ML VIAL IVP STA (08:13)
--- NOTE | 2020-08-10 08:15 | ED ---
General Adult HPI - General Stated complaint: nausea Time Seen by Provider: 08/10/20 08:07 Source: patient, RN notes reviewed, old records reviewed - History of Present Illness Initial comments: This is an 89-year-old female who presents emergency department with past medical history significant for hiatal hernia repair as well as appendectomy years ago. Patient comes in today because she states the last 2 days she's been nauseated and she did vomit a little yesterday as well as started vomiting this morning. Patient states last week she's followed up with her primary medical care doctor because she wasn't feeling well but was very nonspecific about what was not feeling well. Patient states at that time she was not vomiting. Patient denies any diarrhea. Patient denies any abdominal pain. Patient denies any chest pain. Patient denies any fever chills. Patient states she has felt a little short of breath more than normal particularly when she is vomiting. Patient denies any leg swelling or calf tenderness. Patient denies any lightheadedness or dizziness. Patient states yesterday she was eating and drinking fine. - Related Data Home Medications Medication Instructions Recorded Confirmed Cholecalciferol [Vitamin D3 (25 1,000 unit PO DAILY 05/01/19 08/10/20 Mcg = 1000 Iu)] Acetaminophen Tab [Tylenol Tab] 500 mg PO Q6HR PRN 08/10/20 08/10/20 Oxybutynin Chloride [Ditropan] 5 mg PO DAILY 08/10/20 08/10/20 polyethylene glycoL 3350 [Miralax] 17 gm PO DAILY 08/10/20 08/10/20 Allergies Allergy/AdvReac Type Severity Reaction Status Date / Time No Known Allergies Allergy Verified 08/10/20 09:19 Review of Systems ROS Statement: Those systems with pertinent positive or pertinent negative responses have been documented in the HPI. ROS Other: All systems not noted in ROS Statement are negative. 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 Patient is nontoxic and well- hydrated and is in mild distress. ENT: Neck is soft and supple. No significant lymphadenopathy is noted. Oropharynx is clear. Moist mucous membranes. Neck has full range of motion without eliciting any pain. EYES: The sclera were anicteric and conjunctiva were pink and moist. Extraocular movements were intact and pupils were equal round and reactive to light. Eyelids were unremarkable. PULMONARY: Unlabored respirations. Good breath sounds bilaterally. No audible rales rhonchi or wheezing was noted. CARDIOVASCULAR: There is a regular rate and rhythm without any murmurs gallops or rubs. ABDOMEN: Soft and nontender with normal bowel sounds. SKIN: Skin is clear with no lesions or rashes and otherwise unremarkable. NEUROLOGIC: Patient is alert and oriented x3. Cranial nerves II through XII are grossly intact. Motor and sensory are also intact. Normal speech, volume and content. Symmetrical smile. MUSCULOSKELETAL: Normal extremities with adequate strength and full range of motion. No lower extremity swelling or edema. No calf tenderness. LYMPHATICS: No significant lymphadenopathy is noted PSYCHIATRIC: Normal psychiatric evaluation. Course Vital Signs 08/10/20 08/10/20 08/10/20 08:09 09:13 10:19 Temperature 97.8 F 97.6 F 97.6 F Pulse Rate 75 74 75 Respiratory 14 12 12 Rate Blood Pressure 164/86 148/79 131/73 O2 Sat by Pulse 99 99 99 Oximetry 08/10/20 10:32 Temperature 97.6 F Pulse Rate 71 Respiratory 12 Rate Blood Pressure 125/77 O2 Sat by Pulse 99 Oximetry Medical Decision Making - Medical Decision Making EKG shows normal sinus rhythm at 75 bpm W[place] interval 266 QRS is 76 QT interval 36 QTC is 431 per patient's EKG shows no ST segment elevation or depression. Her repeat EKG was done because the patient indicated to an x-ray tech that she is having some chest discomfort. EKG shows sinus bradycardia with occasional PVC at 56 bpm W[place] interval is 136 QRS is 76 QT intervals 466 QTC is 449. Patient's EKG shows no ST segment elevation or depression. When I went back in to speak to the patient about her chest discomfort she said it wasn't discomfort it was severe nausea that is now subsided. - Lab Data Result diagrams: 08/10/20 08:21 08/10/20 08:21 Lab Results 08/10/20 08/10/20 08/10/20 Range/Units 08:21 08:21 08:21 WBC 5.8 (3.8-10.6) k/uL RBC 3.86 (3.80-5.40) m/uL Hgb 12.0 (11.4-16.0) gm/dL Hct 38.7 (34.0-46.0) % MCV 100.2 H (80.0-100.0) fL MCH 31.1 (25.0-35.0) pg MCHC 31.0 (31.0-37.0) g/dL RDW 13.2 (11.5-15.5) % Plt Count 249 (150-450) k/uL Neutrophils % 61 % Lymphocytes % 29 % Monocytes % 6 % Eosinophils % 1 % Basophils % 1 % Neutrophils # 3.5 (1.3-7.7) k/uL Lymphocytes # 1.7 (1.0-4.8) k/uL Monocytes # 0.3 (0-1.0) k/uL Eosinophils # 0.1 (0-0.7) k/uL Basophils # 0.0 (0-0.2) k/uL Sodium 136 L (137-145) mmol/L Potassium 4.6 (3.5-5.1) mmol/L Chloride 101 (98-107) mmol/L Carbon Dioxide 30 (22-30) mmol/L Anion Gap 5 mmol/L BUN 14 (7-17) mg/dL Creatinine 0.53 (0.52-1.04) mg/dL Est GFR (CKD-EPI)AfAm >90 (>60 ml/min/1.73 sqM) Est GFR (CKD-EPI)NonAf 85 (>60 ml/min/1.73 sqM) Glucose 178 H (74-99) mg/dL Calcium 9.5 (8.4-10.2) mg/dL Total Bilirubin 0.7 (0.2-1.3) mg/dL AST 36 (14-36) U/L ALT 17 (4-34) U/L Alkaline Phosphatase 68 (38-126) U/L Troponin I (0.000-0.034) ng/mL Total Protein 7.5 (6.3-8.2) g/dL Albumin 4.4 (3.5-5.0) g/dL Amylase 81 (30-110) U/L Lipase 168 (23-300) U/L Urine Color Yellow Urine Appearance Cloudy H (Clear) Urine pH 7.5 (5.0-8.0) Ur Specific Grant 1.012 (1.001-1.035) Urine Protein Trace H (Negative) Urine Glucose (UA) Negative (Negative) Urine Ketones Trace H (Negative) Urine Blood Negative (Negative) Urine Nitrite Negative (Negative) Urine Bilirubin Negative (Negative) Urine Urobilinogen <2.0 (<2.0) mg/dL Ur Leukocyte Esterase Large H (Negative) Urine RBC 6 H (0-5) /hpf Urine WBC 7 H (0-5) /hpf Ur Squamous Epith Cells 4 (0-4) /hpf Urine Bacteria Rare H (None) /hpf Urine Mucus Rare H (None) /hpf 20/20 Range/Units 08:21 WBC (3.8-10.6) k/uL RBC (3.80-5.40) m/uL Hgb (11.4-16.0) gm/dL Hct (34.0-46.0) % MCV (80.0-100.0) fL MCH (25.0-35.0) pg MCHC (31.0-37.0) g/dL RDW (11.5-15.5) % Plt Count (150-450) k/uL Neutrophils % % Lymphocytes % % Monocytes % % Eosinophils % % Basophils % % Neutrophils # (1.3-7.7) k/uL Lymphocytes # (1.0-4.8) k/uL Monocytes # (0-1.0) k/uL Eosinophils # (0-0.7) k/uL Basophils # (0-0.2) k/uL Sodium (137-145) mmol/L Potassium (3.5-5.1) mmol/L Chloride (98-107) mmol/L Carbon Dioxide (22-30) mmol/L Anion Gap mmol/L BUN (7-17) mg/dL Creatinine (0.52-1.04) mg/dL Est GFR (CKD-EPI)AfAm (>60 ml/min/1.73 sqM) Est GFR (CKD-EPI)NonAf (>60 ml/min/1.73 sqM) Glucose (74-99) mg/dL Calcium (8.4-10.2) mg/dL Total Bilirubin (0.2-1.3) mg/dL AST (14-36) U/L ALT (4-34) U/L Alkaline Phosphatase (38-126) U/L Troponin I <0.012 (0.000-0.034) ng/mL Total Protein (6.3-8.2) g/dL Albumin (3.5-5.0) g/dL Amylase (30-110) U/L Lipase (23-300) U/L Urine Color Urine Appearance (Clear) Urine pH (5.0-8.0) Ur Specific Grant (1.001-1.035) Urine Protein (Negative) Urine Glucose (UA) (Negative) Urine Ketones (Negative) Urine Blood (Negative) Urine Nitrite (Negative) Urine Bilirubin (Negative) Urine Urobilinogen (<2.0) mg/dL Ur Leukocyte Esterase (Negative) Urine RBC (0-5) /hpf Urine WBC (0-5) /hpf Ur Squamous Epith Cells (0-4) /hpf Urine Bacteria (None) /hpf Urine Mucus (None) /hpf Disposition Clinical Impression: Acute vomiting Disposition: HOME SELF-CARE Instructions (If sedation given, give patient instructions): Acute Nausea and Vomiting (ED) Is patient prescribed a controlled substance at d/c from ED?: No Referrals: Axel Brooks DO [Primary Care Provider] - 1-2 days
[2020-08-10 09:05] LABS: Basophils % (A) 1 %; Eosinophils # (A) 0.1 k/uL (0-0.7); Eosinophils % (A) 1 %; HCT 38.7 % (34.0-46.0); Lymphocytes # (A) 1.7 k/uL (1.0-4.8); Lymphocytes % (A) 29 %; MCH 31.1 pg (25.0-35.0); MCV 100.2 fL (80.0-100.0); Mean Platelet Volume 6.9; Monocytes # (A) 0.3 k/uL (0-1.0); Monocytes % (A) 6 %; Neutrophils # (A) 3.5 k/uL (1.3-7.7); Neutrophils % (A) 61 %; Platelet Count 249 k/uL (150-450); RBC 3.86 m/uL (3.80-5.40); RDW 13.2 % (11.5-15.5); WBC 5.8 k/uL (3.8-10.6)
--- NOTE | 2020-08-10 09:13 | XR ---
EXAMINATION TYPE: XR chest 2V DATE OF EXAM: 08/10/2020 COMPARISON: Chest x-ray May 03, 2019 HISTORY: Difficulty breathing. TECHNIQUE: Frontal and lateral views of the chest are obtained. FINDINGS: Eventration posterior aspect left hemidiaphragm redemonstrated. There is chronic parenchyma l changes bilaterally without suspicious new focal air space opacity, pleural effusion, or pneumothor ax seen. The cardiac silhouette size is stable and within normal limits with atherosclerotic change thoracic aorta redemonstrated. The osseous structures remain demineralized. Mild to moderate height loss or chronic compression fracture deformity at several levels near thoracolumbar junction again s een. IMPRESSION: Chronic changes without acute pulmonary process.
[2020-08-10 09:15] VITALS: RESP 12; TEMP 97.6
--- NOTE | 2020-08-10 09:15 | XR ---
EXAMINATION TYPE: XR KUB DATE OF EXAM: 08/10/2020 9:07 AM CLINICAL HISTORY: Abdominal pain and nausea. TECHNIQUE: Two Upright KUB images of the abdomen are obtained. COMPARISON: CT abdomen and pelvis November 08, 2017. FINDINGS: Scattered gas is seen in non-distended small bowel loops. Gas and fecal material is seen in non-distended colon. Amount of colonic fecal material somewhat prominent. Osseous structures are dem ineralized. Underlying scoliotic curvature with compression type fracture deformities in the upper to mid lumbar spine noted. Metallic anchors in the region of pubic symphysis redemonstrated. Scattered inferior pelvic phleboliths. No pneumoperitoneum. IMPRESSION: Overall nonobstructive bowel gas pattern. [id number] diffuse colonic fecal stasis noted.
[2020-08-10 09:29] LABS: ALT 17 U/L (4-34); African American GFR (CKD) >90 (>60 ml/min/1.73 sqM); Albumin 4.4 g/dL (3.5-5.0); Amylase 81 U/L (30-110); Anion Gap 5 mmol/L; Blood Urea Nitrogen 14 mg/dL (7-17); Calcium 9.5 mg/dL (8.4-10.2); Carbon Dioxide 30 mmol/L (22-30); Chloride 101 mmol/L (98-107); Glucose 178 mg/dL (74-99); Non-African American GFR(CKD) 85 (>60 ml/min/1.73 sqM); Sodium 136 mmol/L (137-145); Total Bilirubin 0.7 mg/dL (0.2-1.3); Total Protein 7.5 g/dL (6.3-8.2)
[2020-08-10 09:31] LABS: AST 36 U/L (14-36); Alkaline Phosphatase 68 U/L (38-126); Appearance,Urine Cloudy (Clear); Bacteria,Urine Rare /hpf; Bilirubin,Urine Negative (Negative); Blood,Urine Negative (Negative); Color,Urine Yellow; Glucose,Urine (UA) Negative (Negative); Ketones,Urine Trace (Negative); Leukocyte Esterase,Urine Large (Negative); Mucus,Urine Rare /hpf; Nitrite,Urine Negative (Negative); PH, Urine 7.5 (5.0-8.0); Potassium 4.6 mmol/L (3.5-5.1); Protein,Urine Trace (Negative); RBC,Urine 6 /hpf (0-5); Specific Gravity,Urine 1.012 (1.001-1.035); Squamous Epithelial Cell,Urine 4 /hpf (0-4); Urobilinogen,Urine <2.0 mg/dL (<2.0); WBC,Urine 7 /hpf (0-5)
[2020-08-10] MEDS ORDERED: ONDANSETRON 4 MG ODT STARTER PACK 2 TAB BTL PO STA (10:01)
[2020-08-10 10:36] VITALS: BP 125/77; PULSE 71
== END 2020-08-10 10:43 | disposition home or self-care (01) ==
LOC: EC 08:07
DX: R11.2 Nausea with vomiting, unspecified (principal); R07.89 Other chest pain; I49.3 Ventricular premature depolarization; R32 Unspecified urinary incontinence; Z90.49 Acquired absence of other specified parts of digestive tract; Z98.890 Other specified postprocedural states; Z85.038 Personal history of other malignant neoplasm of large intestine; Z92.21 Personal history of antineoplastic chemotherapy; Z79.899 Other long term (current) drug therapy
CPT/HCPCS: 99285; 96374; 36415; 93005; 80053; 82150; 83690; 84484; 85025; 81001; 71046; 74018; J2765; S0119

== ENCOUNTER 2021-11-01 11:51 | Emergency (ER) | payer MEDICARE, BC ==
[2021-11-01 11:58] VITALS: BP 154/77; PULSE 70; RESP 19; TEMP 97.6
--- NOTE | 2021-11-01 13:00 | ED ---
General Adult HPI - General Chief complaint: Fall Stated complaint: slip & fall Time Seen by Provider: 11/01/21 12:32 Source: patient, family, RN notes reviewed Mode of arrival: wheelchair Limitations: no limitations - History of Present Illness Initial comments: 89-year-old female presents to the emergency Department with complaints of abrasions to right elbow and right knee status post slip and fall on the ice earlier this morning. Reports mild discomfort but no loss of range of motion. Patient's family cleansed and dressed wounds prior to arrival. States they just want to make sure that nothing is broken due to the patient's age. She has been ambulatory with her cane since fall. Patient denies any head, neck, or back injury. - Related Data Home Medications Medication Instructions Recorded Confirmed Cholecalciferol [Vitamin D3 (25 1,000 unit PO DAILY 05/01/19 08/10/20 Mcg = 1000 Iu)] Acetaminophen Tab [Tylenol Tab] 500 mg PO Q6HR PRN 08/10/20 08/10/20 Oxybutynin Chloride [Ditropan] 5 mg PO DAILY 08/10/20 08/10/20 polyethylene glycoL 3350 [Miralax] 17 gm PO DAILY 08/10/20 08/10/20 Allergies Allergy/AdvReac Type Severity Reaction Status Date / Time No Known Allergies Allergy Verified 11/01/21 11:58 Review of Systems ROS Statement: Those systems with pertinent positive or pertinent negative responses have been documented in the HPI. ROS Other: All systems not noted in ROS Statement are negative. 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 Absent: tenderness, meningismus, lymphadenopathy Respiratory exam: Present: normal lung sounds bilaterally. Absent: respiratory distress, wheezes, rales, rhonchi, stridor Cardiovascular Exam: Present: regular rate, normal rhythm, normal heart sounds. Absent: systolic murmur, diastolic murmur, rubs, gallop, clicks GI/Abdominal exam: Present: soft, normal bowel sounds. Absent: distended, tenderness, guarding, rebound, rigid Back exam: Present: normal inspection, full ROM. Absent: tenderness, muscle spasm Neurological exam: Present: alert, oriented X3, CN II-XII intact Psychiatric exam: Present: normal affect, normal mood Skin exam: Present: warm, dry, normal color, abrasion (skin tear right elbow, abrasion right knee). Absent: rash Course Vital Signs 11/01/21 11:53 Temperature 97.6 F Pulse Rate 70 Respiratory 19 Rate Blood Pressure 154/77 O2 Sat by Pulse 97 Oximetry Medical Decision Making - Medical Decision Making 89-year-old independent female presents to the emergency department for evaluation of injuries sustained in a slip and fall earlier today. Upon arrival, patient is well-appearing and in no acute distress. She is freely moving all extremities and denies any injury to head, neck, or back. Patient has been ambulatory with her cane since the fall. She currently has a 2 cm skin tear on her right elbow which was cleansed and dressed prior to arrival. She also has scattered superficial abrasions on her right knee that were also cleansed and dressed prior to arrival. Patient states she is certain that she did receive a tetanus shot from her PCP, however we will call the office tomorrow to verify this. X-rays were obtained and show no evidence of fracture or foreign body. Wounds were redressed, bacitracin applied. Patient will be discharged home to follow-up with her PCP for recheck. Return parameters were discussed in detail. Patient and son verbalized understanding and agreed with this plan. Patient's care was discussed with my attending Dr. Bales. - Radiology Data Radiology results: report reviewed, image reviewed X-ray of the right knee was obtained. Report was reviewed in its entirety. Impression per Dr. Kamara shows there is no acute fracture or dislocation and the right knee. X-ray of the right elbow was obtained. Report was reviewed in its entirety. Impression per Dr. Kamara is there is no acute fracture or dislocation and the right elbow. Disposition Clinical Impression: Abrasion of right knee Disposition: HOME SELF-CARE Condition: Stable Instructions (If sedation given, give patient instructions): Abrasion (ED), Skin Tear (ED), Fall Prevention (ED) Additional Instructions: Rest affected area when sore. May take Tylenol if needed. Apply ice for no more than 20 minutes at a time. Gently cleanse wounds with mild soap and water once daily. Apply triple antibiotic ointment to wounds. Keep them covered if you will be out of the house. You may be more sore tomorrow than today. Maintain your mobility. Follow up with your PCP for a recheck in the next 1-2 days if needed. Turned to the emergency department with any new, worsening, or concerning symptoms. Is patient prescribed a controlled substance at d/c from ED?: No Referrals: Axel Brooks DO [Primary Care Provider] - 1-2 days Time of Disposition: 13:58
--- NOTE | 2021-11-01 13:43 | XR ---
EXAMINATION TYPE: XR elbow complete RT DATE OF EXAM: 11/01/2021 CLINICAL HISTORY: Slip and fall injury with pain. TECHNIQUE: Frontal, lateral and oblique images of the right elbow are obtained. COMPARISON: None FINDINGS: There is no acute fracture/dislocation evident in the right elbow. No abnormal fat pad si gns are seen. Overlying clothing material is present. No suspicious radiodense foreign body. IMPRESSION: There is no acute fracture or dislocation in the right elbow.
--- NOTE | 2021-11-01 13:45 | XR ---
EXAMINATION TYPE: XR knee complete RT DATE OF EXAM: 11/01/2021 CLINICAL HISTORY: Abrasion fall injury with pain TECHNIQUE: Three views of the right knee are obtained. COMPARISON: None. FINDINGS: Suboptimal study due to overlying clothing material. There is no acute fracture/dislocation evident in right knee. Mild to moderate narrowing patellofemoral compartment. Increased density supr apatellar bursa suspicious for moderate to large sized joint effusion. [place] osseous structures are somewhat demineralized. Punctate density medial distal femoral level on oblique image is not reproduc ed on additional views. IMPRESSION: There is no acute fracture or dislocation in the right knee.
[2021-11-01] MEDS ORDERED: BACITRACIN OINT 1 EACH PACKET TOPICAL ONE (14:01)
== END 2021-11-01 14:16 | disposition home or self-care (01) ==
LOC: EC 11:51
DX: S80.211A Abrasion, right knee, initial encounter (principal); J44.9 Chronic obstructive pulmonary disease, unspecified; W00.9XXA Unspecified fall due to ice and snow, initial encounter
CPT/HCPCS: 99284